=== PATIENT | female | born 1990 | race Caucasian/White ===

== ENCOUNTER 2020-11-13 13:00 | Inpatient (IN) | payer OTHER, SELFPAY ==
[~2020-11-13] VITALS: Ht 157.5 cm; Wt 79.8 kg
[2020-11-13] MEDS ORDERED: MORPHINE SULFATE 10 MG/ML VIAL ONE ×2 (14:04→16:03)
[2020-11-13] MEDS: ONDANSETRON 4 MG/2 ML VIAL IVP PRN (14:22)
[2020-11-13] MEDS: LACTATED RINGERS 1,000 ML IV SCH ×2 (14:22→17:52)
[2020-11-13] MEDS: MORPHINE SULFATE 5 MG/ML VIAL IVP PRN ×2 (14:22→16:13)
[2020-11-13 14:41] LABS: BASOPHILS # (AUTO) 0.1 K/uL (0.00-0.22); BASOPHILS % (AUTO) 0.5 % (0.0-2.0); EOSINOPHILS % (AUTO) 0.3 % (0.0-4.0); HEMATOCRIT 30.8 % (36-48); HEMOGLOBIN 10.4 g/dL (12.0-16.0); LYMPHOCYTES # (AUTO) 2.4 K/uL (2.5-16.5); LYMPHOCYTES % (AUTO) 17.4 % (20.5-51.1); MEAN CORPUSCULAR HEMOGLOBIN 31 pg (27-31); MEAN CORPUSCULAR HGB CONC 34 g/dL (33-37); MEAN CORPUSCULAR VOLUME 93.1 fL (80-94); MONOCYTES # (AUTO) 0.7 K/uL (0.8-1.0); MONOCYTES % (AUTO) 4.9 % (1.7-9.3); NEUTROPHILS # (AUTO) 10.5 K/uL (1.8-7.7); NEUTROPHILS % (AUTO) 76.9 % (42.2-75.2); PLATELET COUNT (AUTO) 182 K/uL (140-450); RED BLOOD CELL COUNT(AUTO) 3.31 MIL/uL (4.20-5.40); RED CELL DISTRIBUTION WIDTH 14.2 % (11.6-13.7); WHITE BLOOD COUNT (AUTO) 13.7 K/uL (4.8-10.8)
[2020-11-13] MEDS ORDERED: FERR-212 PO (14:41)
[2020-11-13] MEDS ORDERED: PNV91TAB10 PO (14:41)
[2020-11-13 14:42] LABS: APPEARANCE,URINE CLEAR (CLEAR); BILIRUBIN,URINE NEGATIVE (NEGATIVE); BLOOD, URINE 2+ (NEGATIVE); COLOR,URINE YELLOW (YELLOW); LEUKOCYTE ESTERASE ,URINE NEGATIVE (NEGATIVE); NITRITE, URINE NEGATIVE (NEGATIVE); PH,URINE 6.5 (5.0-9.0); UGLUCOSE NEGATIVE (NEGATIVE)
[2020-11-13 14:58] LABS: ALBUMIN 2.5 g/dL (3.4-5.0); ANION GAP 9.7 (8-16); CARBON DIOXIDE 27.3 mmol/L (21-32); CREATININE 0.6 mg/dL (0.6-1.3); TOTAL BILIRUBIN 0.1 mg/dL (0.0-1.0)
[2020-11-13 15:56] LABS: RBC,URINE 80-100 /HPF (0-5); WBC,URINE 0-5 /HPF (0-5)
[2020-11-13] MEDS ORDERED: PROMETHAZINE 25 MG/ML VIAL IVP SCH (18:00)
[2020-11-13] MEDS ORDERED: KETOROLAC 30 MG/ML VIAL IVP SCH (18:00)
[2020-11-13] MEDS ORDERED: oxyCODONE 5 MG TAB PO SCH ×2 (18:00)
[2020-11-13] MEDS ORDERED: KETOROLAC 30 MG/ML VIAL IVP PRN (21:25)
[2020-11-13] MEDS ORDERED: oxyCODONE 10 MG TABER PO SCH (21:25)
[2020-11-13] MEDS ORDERED: oxyCODONE 5 MG TAB PO PRN (22:00)
[2020-11-13] MEDS ORDERED: oxyCODONE/APAP 5/325 MG 1 TAB TAB ONE ×2 (22:29→22:47)
[2020-11-13] MEDS: oxyCODONE/APAP 5/325 MG 1 TAB TAB PO SCH (22:52)
[2020-11-14] MEDS ORDERED: KETOROLAC 30 MG/ML VIAL IVP SCH (00:30)
[2020-11-14] MEDS: LACTATED RINGERS 1,000 ML IV SCH (02:53)
--- NOTE | 2020-11-14 08:20 | NUR ---
PATIENT HAS BEEN SCREENED AND CATEGORIZED LOW NUTRITION RISK. PATIENT WILL BE SEEN WITHIN 7 DAYS OF ADMISSION. 11/20/[address]
[2020-11-14] MEDS ORDERED: oxyCODONE/APAP 5/325 MG 1 TAB TAB ONE (08:29)
[2020-11-14] MEDS: ONDANSETRON 4 MG/2 ML VIAL IVP PRN (08:36)
[2020-11-14] MEDS: oxyCODONE/APAP 5/325 MG 1 TAB TAB PO SCH (08:38)
== END 2020-11-14 13:20 | disposition home or self-care (01) | DRG 566 ==
LOC: MLD 13:00 → OBSVTOIN 13:00 → INTOOBSV 13:00 → MFCC 15:43 → OBSVTOIN 11-14 09:34
PROVIDERS: ADMIT Obstetrics & Gynecology; ATTEND Obstetrics & Gynecology
DX: O23.02 Infections of kidney in pregnancy, second trimester (principal); N13.6 Pyonephrosis; Z90.49 Acquired absence of other specified parts of digestive tract; O98.512 Other viral diseases complicating pregnancy, second trimester; U07.1 COVID-19; Z88.8 Allergy status to other drugs, medicaments and biological substances; Z3A.24 24 weeks gestation of pregnancy
CPT/HCPCS: G0378 ×21; 36415; 76770; 80053; 81001; 85025; 86886; 86900; 86901; 96361; 96374; 96375; J0696; J1885; J2270; J2405; J2550; J7060; J7120

== ENCOUNTER 2020-11-16 10:09 | Observation (INO) | payer OTHER, SELFPAY ==
[~2020-11-16] VITALS: Ht 157.5 cm; Wt 79.4 kg
[~2020-11-16 10:09] MED LIST: FERR-212 PO; PNV91TAB10 PO
[2020-11-16 10:13] VITALS: BP 81/46
--- NOTE | 2020-11-16 10:23 | NUR ---
PT W/C ASSISTED TO BED 9.
--- NOTE | 2020-11-16 10:29 | NUR ---
Pt W/C assisted to restroom for UA collection.
--- NOTE | 2020-11-16 10:34 | NUR ---
30 y/o female c/o right flank pain 05/17 X1 week non-radiating describes as sharp with +N/V. Pt admitted for hydronephrosis 11/15/20 & discharge from [facility] yesterday. Pt states she was told by Dr. Mattson to do CT scan but she refused at time of admission. Pt states she is willing to do CT today. Pt states she feels dizziness, denies fever/chills. LMP 05/28/20. 25 weeks. [id number] Denies PMH Allergies to ativan
[2020-11-16] MEDS ORDERED: ONDANSETRON 4 MG/2 ML VIAL IVP ONE (10:55)
[2020-11-16] MEDS ORDERED: NACL 0.9% 1,000 ML IV SCH (10:55)
--- NOTE | 2020-11-16 11:02 | NUR ---
Pt taken to CT via W/C.
[2020-11-16 11:04] LABS: APPEARANCE,URINE CLOUDY (CLEAR); BILIRUBIN,URINE NEGATIVE (NEGATIVE); BLOOD, URINE 2+ (NEGATIVE); COLOR,URINE YELLOW (YELLOW); LEUKOCYTE ESTERASE ,URINE TRACE (NEGATIVE); NITRITE, URINE NEGATIVE (NEGATIVE); UGLUCOSE NEGATIVE (NEGATIVE)
--- NOTE | 2020-11-16 11:12 | NUR ---
Pt brought back back from CT via W/C.
--- NOTE | 2020-11-16 11:19 | NUR ---
sleep lab technician at pt bedside.
[2020-11-16 11:25] LABS: BASOPHILS % (AUTO) 0.3 % (0.0-2.0); EOSINOPHILS # (AUTO) 0.1 K/uL (0-0.4); EOSINOPHILS % (AUTO) 0.8 % (0.0-4.0); HEMATOCRIT 28.2 % (36-48); HEMOGLOBIN 9.6 g/dL (12.0-16.0); LYMPHOCYTES # (AUTO) 1.6 K/uL (2.5-16.5); LYMPHOCYTES % (AUTO) 13.9 % (20.5-51.1); MEAN CORPUSCULAR HEMOGLOBIN 32 pg (27-31); MEAN CORPUSCULAR HGB CONC 34 g/dL (33-37); MONOCYTES # (AUTO) 0.8 K/uL (0.8-1.0); MONOCYTES % (AUTO) 7.1 % (1.7-9.3); NEUTROPHILS # (AUTO) 8.7 K/uL (1.8-7.7); NEUTROPHILS % (AUTO) 77.9 % (42.2-75.2); PLATELET COUNT (AUTO) 168 K/uL (140-450); RED BLOOD CELL COUNT(AUTO) 3.04 MIL/uL (4.20-5.40); RED CELL DISTRIBUTION WIDTH 14.2 % (11.6-13.7); WHITE BLOOD COUNT (AUTO) 11.2 K/uL (4.8-10.8)
[2020-11-16] MEDS ORDERED: MORPHINE SULFATE 4 MG/ML SYR IVP ONE (11:45)
[2020-11-16 11:47] LABS: ALBUMIN 2.2 g/dL (3.4-5.0); ANION GAP 8.9 (8-16); CARBON DIOXIDE 28.8 mmol/L (21-32); CREATININE 0.7 mg/dL (0.6-1.3); POTASSIUM 3.7 mmol/L (3.5-5.1); TOTAL BILIRUBIN 0.1 mg/dL (0.0-1.0)
--- NOTE | 2020-11-16 12:16 | NUR ---
Patient discharged with v/s stable. Written and verbal after care instructions given and explained. Patient verbalized understanding. Ambulatory with steady gait. All questions addressed prior to discharge. Advised to follow up with PMD.
--- NOTE | 2020-11-16 12:37 | NUR ---
Pt fluids completed, pt advised to call for a ride due to morphine 2mg/1mL given IVP. Pt stated she has no one to pick her up and [place] [address] [place] and can drive home.
[2020-11-17] MEDS ORDERED: LACTATED RINGERS 1,000 ML IV SCH (21:25)
[2020-11-17] MEDS ORDERED: KETOROLAC 30 MG/ML VIAL IVP PRN (21:25)
[2020-11-17] MEDS ORDERED: oxyCODONE/APAP 5/325 MG 1 TAB TAB PO PRN (21:25)
[2020-11-17] MEDS ORDERED: PROMETHAZINE 25 MG/ML VIAL IVP PRN (21:25)
[2020-11-17] MEDS ORDERED: ONDANSETRON 4 MG/2 ML VIAL IVP PRN (21:25)
[2020-11-17 21:36] VITALS: BP 112/67
[2020-11-17] MEDS ORDERED: METOCLOPRAMIDE 10 MG/2 ML INJ VIAL ONE (22:11)
[2020-11-17 22:22] LABS: BASOPHILS # (AUTO) 0.1 K/uL (0.00-0.22); BASOPHILS % (AUTO) 1.3 % (0.0-2.0); EOSINOPHILS # (AUTO) 0.1 K/uL (0-0.4); EOSINOPHILS % (AUTO) 0.9 % (0.0-4.0); HEMATOCRIT 30.8 % (36-48); HEMOGLOBIN 10.3 g/dL (12.0-16.0); LYMPHOCYTES # (AUTO) 1.9 K/uL (2.5-16.5); MEAN CORPUSCULAR HEMOGLOBIN 31 pg (27-31); MEAN CORPUSCULAR HGB CONC 34 g/dL (33-37); MEAN CORPUSCULAR VOLUME 93.6 fL (80-94); MONOCYTES # (AUTO) 0.7 K/uL (0.8-1.0); MONOCYTES % (AUTO) 6.5 % (1.7-9.3); NEUTROPHILS # (AUTO) 8.5 K/uL (1.8-7.7); NEUTROPHILS % (AUTO) 74.3 % (42.2-75.2); PLATELET COUNT (AUTO) 188 K/uL (140-450); RED BLOOD CELL COUNT(AUTO) 3.29 MIL/uL (4.20-5.40); RED CELL DISTRIBUTION WIDTH 14.2 % (11.6-13.7); WHITE BLOOD COUNT (AUTO) 11.4 K/uL (4.8-10.8)
[2020-11-17 22:26] LABS: BILIRUBIN,URINE NEGATIVE (NEGATIVE); BLOOD, URINE NEGATIVE (NEGATIVE); LEUKOCYTE ESTERASE ,URINE TRACE (NEGATIVE); NITRITE, URINE NEGATIVE (NEGATIVE); PH,URINE 7.5 (5.0-9.0); UGLUCOSE NEGATIVE (NEGATIVE)
[2020-11-17 22:54] LABS: APPEARANCE,URINE HAZY (CLEAR); COLOR,URINE YELLOW (YELLOW)
[2020-11-17 22:56] LABS: RBC,URINE 0-5 /HPF (0-5)
[2020-11-17 23:10] LABS: ALBUMIN 2.5 g/dL (3.4-5.0); ANION GAP 9.3 (8-16); CARBON DIOXIDE 27.6 mmol/L (21-32); CREATININE 0.7 mg/dL (0.6-1.3); POTASSIUM 3.9 mmol/L (3.5-5.1); TOTAL BILIRUBIN 0.3 mg/dL (0.0-1.0)
[2020-11-18] MEDS ORDERED: METOCLOPRAMIDE 10 MG/2 ML INJ VIAL IVP SCH (09:00)
== END 2020-11-17 23:20 | disposition home or self-care (01) ==
LOC: MED 10:09 → MFCC 11-17 20:20
PROVIDERS: ADMIT Obstetrics & Gynecology; ATTEND Obstetrics & Gynecology
DX: O26.832 Pregnancy related renal disease, second trimester (principal); N20.0 Calculus of kidney; Z90.49 Acquired absence of other specified parts of digestive tract; Z88.8 Allergy status to other drugs, medicaments and biological substances; Z3A.24 24 weeks gestation of pregnancy
CPT/HCPCS: 36415; 74176; 80053; 81001; 83690; 85025; 86886; 86900; 86901; 87086; 96374; 96375; 99284; G0378; J1885; J2270; J2405; J2765; J7120; 96361

== ENCOUNTER 2021-01-10 00:55 | Observation (INO) | payer OTHER ==
[~2021-01-10] VITALS: Ht 160 cm; Wt 81.2 kg
[2021-01-10] MEDS ORDERED: ONDANSETRON 4 MG/2 ML VIAL IVP PRN (01:20)
[2021-01-10] MEDS ORDERED: NACL 0.9% 500 ML IV SCH (01:20)
[2021-01-10] MEDS ORDERED: MORPHINE SULFATE 5 MG/ML VIAL IVP PRN (01:20)
[2021-01-10 01:25] VITALS: BP 104/60
[2021-01-10] MEDS: NACL 0.9% 1,000 ML IV SCH ×2 (02:16→04:20)
[2021-01-10 02:19] LABS: APPEARANCE,URINE CLOUDY (CLEAR); BILIRUBIN,URINE 1+ (NEGATIVE); BLOOD, URINE 3+ (NEGATIVE); COLOR,URINE RED (YELLOW); LEUKOCYTE ESTERASE ,URINE TRACE (NEGATIVE); NITRITE, URINE POSITIVE (NEGATIVE); PH,URINE 5.5 (5.0-9.0); UGLUCOSE NEGATIVE (NEGATIVE)
[2021-01-10] MEDS ORDERED: ACETAMINOPHEN EXTRA STRENGTH 500 MG TAB PO PRN (02:20)
[2021-01-10 02:28] LABS: RBC,URINE TOO NUMEROUS TO COUN /HPF (0-5); WBC,URINE 0-5 /HPF (0-5)
[2021-01-10] MEDS ORDERED: cefTRIAXone 1,000 MG VIAL ONE (05:25)
--- NOTE | 2021-01-10 08:43 | NUR ---
PATIENT HAS BEEN SCREENED AND CATEGORIZED LOW NUTRITION RISK. PATIENT WILL BE SEEN WITHIN 7 DAYS OF ADMISSION. 01/16/[address]
== END 2021-01-10 12:10 | disposition home or self-care (01) ==
LOC: MLD 00:55
PROVIDERS: ADMIT Obstetrics & Gynecology; ATTEND Obstetrics & Gynecology
DX: O26.893 Other specified pregnancy related conditions, third trimester (principal); R31.0 Gross hematuria; R30.0 Dysuria; R10.9 Unspecified abdominal pain; O46.93 Antepartum hemorrhage, unspecified, third trimester; O99.891 Other specified diseases and conditions complicating pregnancy; M54.5 Low back pain; O99.613 Diseases of the digestive system complicating pregnancy, third trimester; K21.9 Gastro-esophageal reflux disease without esophagitis; Z87.442 Personal history of urinary calculi; Z87.59 Personal history of other complications of pregnancy, childbirth and the puerperium; Z88.8 Allergy status to other drugs, medicaments and biological substances; Z3A.31 31 weeks gestation of pregnancy
CPT/HCPCS: 36415; 59025; 76770; 76817; 81001; 82731; 87086; 96361; 96365; G0378; J0696; J7060

== ENCOUNTER 2021-01-21 05:54 | Day surgery (SDC) | payer OTHER ==
[2021-01-17 13:26] LABS: BASOPHILS % (AUTO) 0.3 % (0.0-2.0); EOSINOPHILS # (AUTO) 0.1 K/uL (0-0.4); EOSINOPHILS % (AUTO) 0.7 % (0.0-4.0); HEMATOCRIT 30.9 % (36-48); HEMOGLOBIN 10.4 g/dL (12.0-16.0); LYMPHOCYTES # (AUTO) 2.4 K/uL (2.5-16.5); LYMPHOCYTES % (AUTO) 17.1 % (20.5-51.1); MEAN CORPUSCULAR HEMOGLOBIN 31 pg (27-31); MEAN CORPUSCULAR HGB CONC 34 g/dL (33-37); MONOCYTES # (AUTO) 0.9 K/uL (0.8-1.0); MONOCYTES % (AUTO) 6.2 % (1.7-9.3); NEUTROPHILS # (AUTO) 10.6 K/uL (1.8-7.7); NEUTROPHILS % (AUTO) 75.7 % (42.2-75.2); PLATELET COUNT (AUTO) 276 K/uL (140-450); RED BLOOD CELL COUNT(AUTO) 3.35 MIL/uL (4.20-5.40); RED CELL DISTRIBUTION WIDTH 13.3 % (11.6-13.7); WHITE BLOOD COUNT (AUTO) 14.1 K/uL (4.8-10.8)
[2021-01-17 13:44] LABS: APPEARANCE,URINE CLEAR (CLEAR); BILIRUBIN,URINE NEGATIVE (NEGATIVE); BLOOD, URINE NEGATIVE (NEGATIVE); COLOR,URINE YELLOW (YELLOW); LEUKOCYTE ESTERASE ,URINE NEGATIVE (NEGATIVE); NITRITE, URINE NEGATIVE (NEGATIVE); UGLUCOSE NEGATIVE (NEGATIVE)
[2021-01-17 13:52] LABS: ALBUMIN 2.4 g/dL (3.4-5.0); ANION GAP 11.3 (8-16); CARBON DIOXIDE 26.6 mmol/L (21-32); CREATININE 0.6 mg/dL (0.6-1.3); POTASSIUM 3.9 mmol/L (3.5-5.1); TOTAL BILIRUBIN 0.2 mg/dL (0.0-1.0)
[~2021-01-21] VITALS: Ht 157.5 cm; Wt 85.7 kg
[2021-01-21] MEDS ORDERED: fentaNYL citrate 0.05 MG/ML VIAL ONE (07:30)
[2021-01-21] MEDS ORDERED: SEVOFLURANE 250 ML BTL INH ONE (07:30)
[2021-01-21] MEDS ORDERED: PROPOFOL 200 MG/20 ML VIAL IV ONE (07:30)
[2021-01-21] MEDS ORDERED: METOCLOPRAMIDE 10 MG/2 ML INJ VIAL ONE (07:30)
[2021-01-21] MEDS ORDERED: ROCURONIUM 50 MG/5 ML VIAL IV ONE (07:30)
[2021-01-21] MEDS ORDERED: ePHEDrine 50 MG/ML VIAL ONE (07:30)
[2021-01-21] MEDS ORDERED: ceFAZolin 1,000 MG VIAL ONE (07:49)
[2021-01-21] MEDS ORDERED: LACTATED RINGERS 1,000 ML IV SCH (08:30)
[2021-01-21] MEDS ORDERED: ACETAMINOPHEN EXTRA STRENGTH 500 MG TAB PO PRN (08:30)
[2021-01-21] MEDS ORDERED: ONDANSETRON 4 MG/2 ML VIAL IVP PRN (08:30)
[2021-01-21] MEDS ORDERED: PHENAZOPYRIDINE 100 MG TAB PO SCH (11:00)
[2021-01-22] MEDS ORDERED: ONDANSETRON 4 MG/2 ML VIAL ONE (21:06)
== END 2021-01-21 11:00 | disposition home or self-care (01) ==
LOC: MOR 05:54 → MMU 05:55 → MFCC 08:08 → MOR 11:00
PROVIDERS: ATTEND Urology
DX: N13.2 Hydronephrosis with renal and ureteral calculous obstruction (principal); K21.9 Gastro-esophageal reflux disease without esophagitis; Z79.899 Other long term (current) drug therapy
CPT/HCPCS: 36415; 52332; 76998; 80053; 81003; 85025; 87086; 87426; C1758; C1769; C2617; J0690; J2704; J2765; J3010; J3490; J7120; J2405

== ENCOUNTER 2021-01-21 13:35 | Observation (INO) | payer OTHER ==
[~2021-01-21] VITALS: Ht 157.5 cm; Wt 85.7 kg
[2021-01-21] MEDS ORDERED: MORPHINE SULFATE 10 MG/ML VIAL IVP PRN (14:20)
[2021-01-21] MEDS: ONDANSETRON 4 MG/2 ML VIAL IVP PRN ×2 (14:28→19:55)
[2021-01-21] MEDS ORDERED: TOLTERODINE LA 4 MG CAPER PO SCH (16:00)
[2021-01-21] MEDS: MORPHINE SULFATE 10 MG/ML VIAL IVP PRN ×2 (17:04→19:57)
[2021-01-21 17:22] VITALS: BP 135/84
[2021-01-21] MEDS: LACTATED RINGERS 1,000 ML IV SCH (18:00)
[2021-01-21] MEDS ORDERED: PROMETHAZINE 25 MG/ML VIAL IVP PRN (21:50)
[2021-01-21] MEDS ORDERED: METOCLOPRAMIDE 10 MG/2 ML INJ VIAL ONE (22:06)
[2021-01-21] MEDS: oxyCODONE/APAP 5/325 MG 1 TAB TAB PO PRN (23:12)
[2021-01-21 23:45] VITALS: BP 112/63
[2021-01-22] MEDS: LACTATED RINGERS 1,000 ML IV SCH ×3 (00:30→16:01)
[2021-01-22] MEDS ORDERED: diphenhydrAMINE 50 MG CAP PO SCH (02:45)
[2021-01-22] MEDS ORDERED: diphenhydrAMINE 50 MG CAP PO ONE (02:53)
[2021-01-22] MEDS: ONDANSETRON 4 MG/2 ML VIAL IVP PRN ×3 (04:55→21:10)
[2021-01-22] MEDS: MORPHINE SULFATE 10 MG/ML VIAL IVP PRN ×2 (04:56→12:24)
--- NOTE | 2021-01-22 08:57 | NUR ---
PATIENT HAS BEEN SCREENED AND CATEGORIZED LOW NUTRITION RISK. PATIENT WILL BE SEEN WITHIN 7 DAYS OF ADMISSION. 01/28/[address]
[2021-01-22] MEDS ORDERED: TOLTERODINE LA 4 MG CAPER PO SCH (09:00)
[2021-01-22] MEDS: oxyCODONE/APAP 5/325 MG 1 TAB TAB PO PRN (09:17)
[2021-01-22 12:24] VITALS: BP 126/82
[2021-01-22] MEDS ORDERED: METOCLOPRAMIDE 10 MG/2 ML INJ VIAL IVP SCH (22:00)
== END 2021-01-22 22:30 | disposition home or self-care (01) ==
LOC: MFCC 13:35
PROVIDERS: ADMIT Obstetrics & Gynecology; ATTEND Obstetrics & Gynecology
DX: O99.891 Other specified diseases and conditions complicating pregnancy (principal); N13.2 Hydronephrosis with renal and ureteral calculous obstruction; O21.2 Late vomiting of pregnancy; O26.893 Other specified pregnancy related conditions, third trimester; R31.9 Hematuria, unspecified; O46.93 Antepartum hemorrhage, unspecified, third trimester; O99.613 Diseases of the digestive system complicating pregnancy, third trimester; K21.9 Gastro-esophageal reflux disease without esophagitis; Z87.59 Personal history of other complications of pregnancy, childbirth and the puerperium; Z90.49 Acquired absence of other specified parts of digestive tract; Z88.8 Allergy status to other drugs, medicaments and biological substances; Z3A.33 33 weeks gestation of pregnancy
CPT/HCPCS: 51702; 59025; 96361; 96374; 96375; 96376; G0378; J2270; J2405; J2550; J2765; J7120; Q0163

== ENCOUNTER 2021-01-24 02:55 | Inpatient (IN) | payer OTHER ==
[~2021-01-24] VITALS: Ht 157.5 cm; Wt 85.7 kg
[2021-01-24] MEDS ORDERED: LACTATED RINGERS 500 ML IV ONE (03:25)
[2021-01-24] MEDS: LACTATED RINGERS 1,000 ML IV SCH ×4 (04:08→22:05)
[2021-01-24] MEDS ORDERED: PRETAB PO (04:09)
[2021-01-24] MEDS: ONDANSETRON 4 MG/2 ML VIAL IVP PRN ×3 (04:14→10:18)
[2021-01-24] MEDS ORDERED: MORPHINE SULFATE 10 MG/ML VIAL ONE ×3 (04:17→10:13)
[2021-01-24] MEDS ORDERED: ACET-5629 PO (04:56)
[2021-01-24 05:05] LABS: APPEARANCE,URINE CLEAR (CLEAR); BILIRUBIN,URINE NEGATIVE (NEGATIVE); BLOOD, URINE 3+ (NEGATIVE); COLOR,URINE YELLOW (YELLOW); LEUKOCYTE ESTERASE ,URINE NEGATIVE (NEGATIVE); NITRITE, URINE NEGATIVE (NEGATIVE); PH,URINE 6.5 (5.0-9.0); UGLUCOSE NEGATIVE (NEGATIVE)
[2021-01-24] MEDS ORDERED: BETAMETH ACET/BETAMETH NA PH 30 MG/5 ML VIAL IM ONE ×2 (05:40→05:44)
[2021-01-24 05:45] LABS: RBC,URINE 0-5 /HPF (0-5)
[2021-01-24] MEDS: MORPHINE SULFATE 5 MG/ML VIAL IVP PRN ×2 (07:07→10:18)
--- NOTE | 2021-01-24 08:49 | NUR ---
PATIENT HAS BEEN SCREENED AND CATEGORIZED LOW NUTRITION RISK. PATIENT WILL BE SEEN WITHIN 7 DAYS OF ADMISSION. 01/30/[address]
[2021-01-24] MEDS ORDERED: oxyCODONE/APAP 5/325 MG 1 TAB TAB PO PRN ×2 (13:00)
[2021-01-25] MEDS ORDERED: ZOLPIDEM 10 MG TAB PO ONE (02:45)
[2021-01-25] MEDS ORDERED: ZOLPIDEM 5 MG TAB ONE (02:49)
[2021-01-25] MEDS ORDERED: ZOLPIDEM 10 MG TAB PO SCH (02:55)
[2021-01-25] MEDS: LACTATED RINGERS 1,000 ML IV SCH (06:05)
[2021-01-25] MEDS ORDERED: BETAMETH ACET/BETAMETH NA PH 30 MG/5 ML VIAL IM ONE (06:21)
[2021-01-25] MEDS ORDERED: MORPHINE SULFATE 4 MG/ML SYR IVP PRN (07:50)
[2021-01-25] MEDS: ONDANSETRON 4 MG/2 ML VIAL IVP PRN ×3 (08:13→23:54)
[2021-01-25] MEDS: NACL 0.9% 1,000 ML IV SCH ×3 (08:14→23:31)
[2021-01-25] MEDS ORDERED: MORPHINE SULFATE 10 MG/ML VIAL ONE (10:49)
[2021-01-25] MEDS ORDERED: MORPHINE SULFATE 10 MG/ML VIAL IVP PRN (11:05)
--- NOTE | 2021-01-25 15:51 | NUR ---
Social Service Note: Pt referred to social insurance analyst by nursing. GERIATRIC PERSONAL CARE AIDE met with pt at bedside; pt appears alert and oriented x4. Pt began crying upon assessment. GERIATRIC PERSONAL CARE AIDE inquired as to why pt was crying; pt states that she has been in pain. Pt states that she had the same pain during her first . Pt's first was in 2009. Pt states that she had kidney stones. Pt reports that during her first she was given morphine to help with the pain of the kidney stones and pt states that after the that her daughter had to withdraw from the morphine. Pt states that she dealt with depression after her first . Pt does not recall if she was prescribed any anti-depression medications. Pt states that she is concerned because she has been taking morphine for the pain during this . GERIATRIC PERSONAL CARE AIDE encouraged pt to speak to her physician regarding her concerns with the morphine. GERIATRIC PERSONAL CARE AIDE also encouraged pt to speak with her physician regarding her history of depression. GERIATRIC PERSONAL CARE AIDE spoke with pt about outpatient therapy; pt states that she is open to seeking therapy for herself to help with her anxiety and possible depression. GERIATRIC PERSONAL CARE AIDE spoke with pt about coping mechanisms that pt can use to help when she is dealing with pain and anxiety. Pt states that she is having a planned induction on 02/17/21. GERIATRIC PERSONAL CARE AIDE spoke with pt about coping mechanisms to use to get pt to the delivery date of her baby. Pt reports that she lives with her partner who is the father of this baby she is with. Pt reports that her partner is supportive. GERIATRIC PERSONAL CARE AIDE encouraged pt to speak with her partner about her concerns of depression again and the anxiety she experiences. Pt states that she has started to have conversations with her partner. Pt states that she is open to reviewing resources for outpatient mental health and support. [facility] has provided pt with resources. GERIATRIC PERSONAL CARE AIDE updated pt's nurse. GERIATRIC PERSONAL CARE AIDE will remain available for support and will follow up as needed.
[2021-01-25] MEDS ORDERED: ZOLPIDEM 5 MG TAB PO SCH (21:00)
[2021-01-25] MEDS ORDERED: PANTOPRAZOLE 40 MG TABEC PO SCH (21:30)
[2021-01-25] MEDS ORDERED: FAMOTIDINE 20 MG TAB PO SCH (21:30)
[2021-01-25] MEDS ORDERED: PANTOPRAZOLE 40 MG TABEC PO ONE (21:36)
[2021-01-25] MEDS ORDERED: FAMOTIDINE 20 MG TAB ONE (21:36)
[2021-01-25 23:53] VITALS: BP 115/55
[2021-01-26] MEDS: NACL 0.9% 1,000 ML IV SCH ×2 (07:51→16:32)
[2021-01-26] MEDS: ONDANSETRON 4 MG/2 ML VIAL IVP PRN (07:52)
== END 2021-01-26 17:15 | disposition home or self-care (01) | DRG 566 ==
LOC: MLD 02:55 → MFCC 02:56 → OBSVTOIN 16:24
PROVIDERS: ADMIT Obstetrics & Gynecology; ATTEND Obstetrics & Gynecology
DX: O26.893 Other specified pregnancy related conditions, third trimester (principal); R10.31 Right lower quadrant pain; Z3A.33 33 weeks gestation of pregnancy; Z88.8 Allergy status to other drugs, medicaments and biological substances
CPT/HCPCS: G0378 ×13; 59025; 81001; 87086; 87186; J0696; J0702; J2270; J2405; J7030; J7042; J7060; J7120

== ENCOUNTER 2021-02-16 22:42 | Inpatient (IN) | payer OTHER ==
[~2021-02-16] VITALS: Ht 157.5 cm; Wt 84.8 kg
[~2021-02-16 22:42] MED LIST changes: +ACET-5629 PO; +PRETAB PO
[2021-02-16 23:00] VITALS: BP 98/66
[2021-02-16] MEDS ORDERED: LACTATED RINGERS 500 ML IV SCH (23:50)
[2021-02-17] MEDS ORDERED: CLINDAMYCIN 900 MG in DEXTROSE 5% 100 ML IV SCH ×2
[2021-02-17] MEDS ORDERED: MISOPROSTOL 25 MCG TAB VG SCH (00:30)
[2021-02-17 01:01] LABS: BASOPHILS % (AUTO) 0.2 % (0.0-2.0); EOSINOPHILS # (AUTO) 0.1 K/uL (0-0.4); EOSINOPHILS % (AUTO) 0.9 % (0.0-4.0); HEMATOCRIT 29.4 % (36-48); HEMOGLOBIN 9.7 g/dL (12.0-16.0); LYMPHOCYTES % (AUTO) 19.9 % (20.5-51.1); MEAN CORPUSCULAR HEMOGLOBIN 31 pg (27-31); MEAN CORPUSCULAR HGB CONC 33 g/dL (33-37); MEAN CORPUSCULAR VOLUME 93.1 fL (80-94); MONOCYTES # (AUTO) 1.2 K/uL (0.8-1.0); MONOCYTES % (AUTO) 7.7 % (1.7-9.3); NEUTROPHILS # (AUTO) 10.8 K/uL (1.8-7.7); NEUTROPHILS % (AUTO) 71.3 % (42.2-75.2); PLATELET COUNT (AUTO) 248 K/uL (140-450); RED BLOOD CELL COUNT(AUTO) 3.16 MIL/uL (4.20-5.40); RED CELL DISTRIBUTION WIDTH 14.3 % (11.6-13.7); WHITE BLOOD COUNT (AUTO) 15.1 K/uL (4.8-10.8)
[2021-02-17] MEDS: LACTATED RINGERS 1,000 ML IV SCH ×7 (01:10→23:16)
[2021-02-17 01:20] LABS: ALBUMIN 2.5 g/dL (3.4-5.0); ANION GAP 15.6 (8-16); CREATININE 0.6 mg/dL (0.6-1.3); POTASSIUM 3.6 mmol/L (3.5-5.1); TOTAL BILIRUBIN 0.2 mg/dL (0.0-1.0)
[2021-02-17 01:43] LABS: APPEARANCE,URINE CLEAR (CLEAR); BILIRUBIN,URINE NEGATIVE (NEGATIVE); BLOOD, URINE NEGATIVE (NEGATIVE); COLOR,URINE ORANGE (YELLOW); LEUKOCYTE ESTERASE ,URINE NEGATIVE (NEGATIVE); UGLUCOSE TRACE (NEGATIVE)
[2021-02-17] MEDS ORDERED: CLINDAMYCIN 900 MG/6 ML VIAL IV ONE (01:49)
[2021-02-17 01:50] LABS: NITRITE, URINE NEGATIVE (NEGATIVE)
[2021-02-17 01:51] LABS: RBC,URINE 0-5 /HPF (0-5); WBC,URINE 0-5 /HPF (0-5)
[2021-02-17] MEDS ORDERED: PRETAB PO (03:08)
[2021-02-17] MEDS ORDERED: PHEN-1593 PO (03:11)
[2021-02-17] MEDS ORDERED: CEPH250C16 PO (03:12)
[2021-02-17] MEDS: MISOPROSTOL 25 MCG TAB VG SCH (08:10)
--- NOTE | 2021-02-17 10:09 | NUR ---
PATIENT HAS BEEN SCREENED AND CATEGORIZED LOW NUTRITION RISK. PATIENT WILL BE SEEN WITHIN 7 DAYS OF ADMISSION. 02/23/21 MELODY MAE MBA, RD
[2021-02-17] MEDS ORDERED: FAMOTIDINE 20 MG TAB PO SCH (15:39)
[2021-02-17] MEDS ORDERED: ROPIVACAINE 0.2%/NS PREMIX 200 ML EPI ONE (16:50)
[2021-02-17] MEDS: ePHEDrine 50 MG/ML VIAL IV SCH ×2 (19:02→19:17)
[2021-02-18] MEDS: MISOPROSTOL 25 MCG TAB VG SCH (00:21)
[2021-02-18] MEDS: LACTATED RINGERS 1,000 ML IV SCH ×3 (05:40→17:34)
[2021-02-18] MEDS ORDERED: OXYTOCIN 20 UNITS in LACTATED RINGERS 1,000 ML IV SCH (06:25)
[2021-02-18] MEDS ORDERED: OXYTOCIN 20 UNITS/LR PREMIX 1,000 ML IV ONE (06:26)
[2021-02-18] MEDS ORDERED: ROPIVACAINE 0.2%/NS PREMIX 200 ML EPI ONE ×2 (07:26→20:47)
[2021-02-18] MEDS: FAMOTIDINE 20 MG TAB PO SCH (09:43)
[2021-02-18] MEDS ORDERED: ONDANSETRON 4 MG TAB ONE (21:59)
[2021-02-19] MEDS: IBUPROFEN 800 MG TAB PO PRN ×2 (00:41→05:23)
[2021-02-19] MEDS ORDERED: FERROUS SULFATE 325 MG TABEC PO SCH (08:00)
[2021-02-19 08:08] LABS: HEMATOCRIT 26.6 % (36-48); HEMOGLOBIN 8.8 g/dL (12.0-16.0)
[2021-02-19] MEDS: DOCUSATE SODIUM 100 MG GELCAP PO SCH (09:19)
[2021-02-19] MEDS: FAMOTIDINE 20 MG TAB PO SCH (09:19)
[2021-02-19] MEDS: HYDROcodone/APAP 5/325 MG 1 TAB TAB PO PRN ×4 (09:19→22:58)
[2021-02-19] MEDS ORDERED: MEASLES, MUMPS, AND RUBELLA 1 VIAL SQVAC ONE (21:40)
[2021-02-19] MEDS ORDERED: bisacodyL 10 MG SUPP RC SCH (23:10)
[2021-02-20] MEDS: HYDROcodone/APAP 5/325 MG 1 TAB TAB PO PRN ×2 (03:49→10:54)
[2021-02-20] MEDS ORDERED: SIMETHICONE 80 MG TAB.CHEW PO PRN (09:20)
[2021-02-20] MEDS: DOCUSATE SODIUM 100 MG GELCAP PO SCH (09:59)
[2021-02-20] MEDS: FAMOTIDINE 20 MG TAB PO SCH (10:00)
== END 2021-02-20 13:30 | disposition home or self-care (01) | DRG 560 ==
LOC: MLD 22:42 → MFCC 02-19 00:30
PROVIDERS: ADMIT Obstetrics & Gynecology; ATTEND Obstetrics & Gynecology
PROC: 10D07Z6 Extraction of Products of Conception, Vacuum, Via Natural or Artificial Opening (ICD-10-PCS; principal; 2021-02-18)
PROC: 10907ZC Drainage of Amniotic Fluid, Therapeutic from Products of Conception, Via Natural or Artificial Opening (ICD-10-PCS; 2021-02-18)
PROC: 3E0P7VZ Introduction of Hormone into Female Reproductive, Via Natural or Artificial Opening (ICD-10-PCS; 2021-02-18)
PROC: 00HU33Z Insertion of Infusion Device into Spinal Canal, Percutaneous Approach (ICD-10-PCS; 2021-02-18)
PROC: 3E0R3BZ Introduction of Anesthetic Agent into Spinal Canal, Percutaneous Approach (ICD-10-PCS; 2021-02-18)
PROC: 3E0234Z Introduction of Serum, Toxoid and Vaccine into Muscle, Percutaneous Approach (ICD-10-PCS; 2021-02-19)
DX: O26.833 Pregnancy related renal disease, third trimester (principal); R71.0 Precipitous drop in hematocrit; N20.0 Calculus of kidney; Z37.0 Single live birth; O75.81 Maternal exhaustion complicating labor and delivery; Z3A.37 37 weeks gestation of pregnancy; Z20.822 Contact with and (suspected) exposure to COVID-19; Z23 Encounter for immunization; O99.013 Anemia complicating pregnancy, third trimester
CPT/HCPCS: 36415; 51702; 59200; 76815; 80053; 81001; 85018; 85025; 86592; 86762; 86886; 86900; 86901; 87340; 87653-90; 90707; J2590; J2795; J3490; J7060; J7120; Q0162

== ENCOUNTER 2022-02-08 11:41 | Emergency (ER) | payer OTHER ==
[~2022-02-08] VITALS: Ht 157.5 cm; Wt 81.6 kg
[~2022-02-08 11:41] MED LIST changes: -FERR-212 PO; -PRETAB PO
[2022-02-08 11:53] VITALS: BP 117/75
[2022-02-08] MEDS ORDERED: TAM75 PO (12:38)
[2022-02-08] MEDS ORDERED: ACET-10509 PO (12:38)
[2022-02-08] MEDS ORDERED: BENZ-300 PO (12:38)
--- NOTE | 2022-02-08 12:45 | NUR ---
PT SEEN AND DC BY BHARATI MERRITT, NO NURSING INTERVENTIONS PROVIDED
--- NOTE | 2022-02-08 12:46 | NUR ---
Patient discharged with v/s stable. Written and verbal after care instructions ABOUT VIRAL ILLNESS given and explained. Patient alert, oriented and verbalized understanding of instructions. Ambulatory with steady gait. All questions addressed prior to discharge. ID band removed. Patient advised to follow up with PMD. Rx of TYLENOL EXTRA STRENGTH, CEPACOL SORE THROAT, TAMIFLU given. Patient educated on indication of medication including possible reaction and side effects. Opportunity to ask questions provided and answered.
== END 2022-02-08 12:46 | disposition home or self-care (01) ==
LOC: MED 11:41
DX: B34.9 Viral infection, unspecified (principal); Z79.899 Other long term (current) drug therapy; Z79.891 Long term (current) use of opiate analgesic; Z88.8 Allergy status to other drugs, medicaments and biological substances; Z88.0 Allergy status to penicillin
CPT/HCPCS: 99283

== ENCOUNTER 2023-08-07 10:27 | Emergency (ER) | payer MEDICAID, OTHER ==
[~2023-08-07] VITALS: Ht 162.6 cm; Wt 81.6 kg
[~2023-08-07 10:27] MED LIST changes: +ACET-10509 PO; +BENZ-300 PO; +TAM75 PO
[2023-08-07 11:03] VITALS: BP 142/82; PULSE 89; RESP 18; TEMP 98; O2SAT 98
[2023-08-07] MEDS ORDERED: ONDANSETRON 4 MG/2 ML VIAL IVP ONE (11:20)
[2023-08-07] MEDS ORDERED: NACL 0.9% 1,000 ML IV SCH (11:20)
[2023-08-07] MEDS ORDERED: KETOROLAC 30 MG/ML VIAL IVP ONE (11:20)
[2023-08-07 11:52] LABS: BASOPHILS # (AUTO) 0.1 K/uL (0.00-0.22); BASOPHILS % (AUTO) 0.6 % (0.0-2.0); EOSINOPHILS # (AUTO) 0.1 K/uL (0-0.4); EOSINOPHILS % (AUTO) 0.4 % (0.0-4.0); HEMATOCRIT 42.2 % (36-48); HEMOGLOBIN 14.2 g/dL (12.0-16.0); LYMPHOCYTES # (AUTO) 1.6 K/uL (2.5-16.5); LYMPHOCYTES % (AUTO) 12.9 % (20.5-51.1); MEAN CORPUSCULAR HEMOGLOBIN 30 pg (27-31); MEAN CORPUSCULAR HGB CONC 34 g/dL (33-37); MONOCYTES # (AUTO) 0.5 K/uL (0.8-1.0); MONOCYTES % (AUTO) 3.9 % (1.7-9.3); NEUTROPHILS # (AUTO) 9.9 K/uL (1.8-7.7); NEUTROPHILS % (AUTO) 82.2 % (42.2-75.2); PLATELET COUNT (AUTO) 230 K/uL (140-450); RED BLOOD CELL COUNT(AUTO) 4.74 MIL/uL (4.20-5.40); RED CELL DISTRIBUTION WIDTH 13.3 % (11.6-13.7); WHITE BLOOD COUNT (AUTO) 12.1 K/uL (4.8-10.8)
[2023-08-07 12:01] LABS: APPEARANCE,URINE CLEAR (CLEAR); BILIRUBIN,URINE NEGATIVE (NEGATIVE); BLOOD, URINE TRACE-I (NEGATIVE); COLOR,URINE YELLOW (YELLOW); LEUKOCYTE ESTERASE ,URINE NEGATIVE (NEGATIVE); NITRITE, URINE NEGATIVE (NEGATIVE); PROTEIN,URINE NEGATIVE (NEGATIVE); UGLUCOSE NEGATIVE (NEGATIVE); UROBILINOGEN,URINE 0.2 EU/dL (0.2 - 1)
[2023-08-07 12:13] LABS: ALBUMIN 4.2 g/dL (3.4-5.0); ANION GAP 14.7 (8-16); CALCIUM 8.8 mg/dL (8.5-10.1); CARBON DIOXIDE 27.4 mmol/L (21-32); CREATININE 0.8 mg/dL (0.6-1.3); POTASSIUM 4.1 mmol/L (3.5-5.1); TOTAL BILIRUBIN 0.3 mg/dL (0.0-1.0); TOTAL PROTEIN, SERUM 7.5 g/dL (6.4-8.2)
[2023-08-07 12:24] LABS: BACTERIA,URINE FEW /HPF (None Seen)
[2023-08-07 12:25] LABS: WBC,URINE 0-5 /HPF (0-5)
[2023-08-07 12:27] LABS: RBC,URINE 0-5 /HPF (0-5)
[2023-08-07] MEDS ORDERED: ONDA-188 PO (13:18)
[2023-08-07] MEDS ORDERED: FLUC150T PO (13:29)
[2023-08-07 14:40] VITALS: BP 106/69; PULSE 72; RESP 18; O2SAT 99
== END 2023-08-07 14:40 | disposition home or self-care (01) ==
LOC: MED 10:27
DX: N23 Unspecified renal colic (principal); B37.9 Candidiasis, unspecified; Z88.1 Allergy status to other antibiotic agents; Z88.8 Allergy status to other drugs, medicaments and biological substances; Z79.899 Other long term (current) drug therapy
CPT/HCPCS: 36415; 80053; 81001; 81025; 83690; 85025; 96361; 96374; 96375; 99284; J1885; J2405; J7030